=== PATIENT | female | born 1935 | race Caucasian/White ===

== ENCOUNTER 2016-11-23 00:56 | Emergency (ER) | payer MEDICARE, OTHER ==
[2016-11-23] MEDS ORDERED: DUONEB INH ONE (02:15)
== END 2016-11-23 03:01 | disposition home or self-care (01) ==
LOC: ER 00:56
DX: J98.01 Acute bronchospasm (principal); T37.1X5A Adverse effect of antimycobacterial drugs, initial encounter; J44.1 Chronic obstructive pulmonary disease with (acute) exacerbation
CPT/HCPCS: 71020; 87804; 94640